=== PATIENT | male | born 1965 | race Caucasian/White ===

== ENCOUNTER 2023-03-02 15:32 | Inpatient (IN) | payer MEDICAID, OTHER ==
[~2023-03-02] VITALS: Ht 165.1 cm; Wt 65.8 kg
[2023-03-02 15:49] VITALS: O2SAT 99
[2023-03-02 16:26] LABS: BASOPHILS % 0.5 % (0.0-2.0); EOSINOPHILS % 3.5 % (0.0-5.0); HEMATOCRIT. 38.6 % (42.0-52.0); HEMOGLOBIN. 12.3 g/dL (14.0-18.0); LYMPHOCYTES % 8.9 % (20.0-50.0); MEAN CORPUSCULAR HEMOGLOBIN 18.3 pg (28.0-32.0); MEAN CORPUSCULAR VOLUME 57.2 fL (80.0-94.0); MONOCYTES % 7.1 % (2.0-8.0); PLATELET 341 x1000/uL (130-400); RED BLOOD CELL COUNT 6.75 mill/uL (4.7-6.1); RED CELL DISTRIBUTION WIDTH 16.2 % (11.6-14.6); WHITE BLOOD COUNT 15.6 x1000/uL (4.5-11.0)
[2023-03-02 16:28] LABS: ADD RBC MORPHOLOGY YES; DIFFERENTIAL COMMENT 1
[2023-03-02 16:34] LABS: INR 1.1; PROTHROMBIN TIME 11.4 sec (9.6-11.0)
[2023-03-02 16:49] LABS: CHLORIDE 106 mEq/L (98-107); INDEX HEMOLYSI 1 (1-3); INDEX ICTERIC 1 (1-4); INDEX LIPEMIC 1 (1-3); POTASSIUM 3.9 mEq/L (3.5-5.1); SODIUM 138 mEq/L (136-145)
[2023-03-02 17:05] LABS: ALANINE AMINOTRANSFERASE 23 IU/L (13-61); ALBUMIN 3.7 g/dL (3.4-5.0); ASPARTATE AMINOTRANSFERASE 13 IU/L (15-37); BILIRUBIN TOTAL 1.4 mg/dL (0.1-1.0); CALCIUM 8.9 mg/dL (8.5-10.1); CARBON DIOXIDE 26 mEq/L (21-32); GLUCOSE 96 mg/dL (70-105); PROTEIN TOTAL 7.9 g/dL (6.0-8.3); THYROID STIMULATING HORMONE 0.43 uIU/mL (0.36-3.74); UREA NITROGEN BLOOD 12 mg/dL (7-21)
[2023-03-02 17:29] LABS: ANISOCYTOSIS 1+; HYPOCHROMASIA 3+; MICROCYTOSIS 3+; PLATELET ESTIMATE NORMAL
[2023-03-02] MEDS ORDERED: CLONIDINE 0.1MG TABLET PO NR (22:45)
[2023-03-02] MEDS ORDERED: PIPERACILLIN/TAZOBACTAM 3.375GM/50ML PREMIX IV NR (23:00)
[2023-03-02 23:35] LABS: CLARITY URINE CLEAR (CLEAR); COLOR URINE YELLOW (YELLOW); GLUCOSE URINE NEGATIVE (NEGATIVE); KETONES URINE TRACE (NEGATIVE); LEUKOCYTE ESTERASE URINE NEGATIVE (NEGATIVE); NITRITE URINE NEGATIVE (NEGATIVE); OCCULT BLOOD URINE NEGATIVE (NEGATIVE); PROTEIN URINE NEGATIVE (NEGATIVE); SPECIFIC GRAVITY URINE 1.034 (1.005-1.030)
[2023-03-03] MEDS ORDERED: IOHEXOL-300 100 ML BOTTLE ONE (00:09)
[2023-03-03] MEDS ORDERED: KETOROLAC 15MG/ML VIAL IV PRN (01:15)
[2023-03-03] MEDS ORDERED: ONDANSETRON HCL 4MG/2ML INJ IV PRN (01:15)
[2023-03-03] MEDS ORDERED: CLONIDINE 0.1MG TABLET PO PRN (01:15)
[2023-03-03] MEDS ORDERED: DIPHENHYDRAMINE 50MG/ML VIAL IV PRN (01:15)
[2023-03-03] MEDS ORDERED: ACETAMINOPHEN 325MG TABLET PO PRN ×2 (01:15)
[2023-03-03] MEDS ORDERED: MAGNESIUM/ALUMINUM HYDROXIDE/SIMETHICONE 30ML UDC PO PRN (01:15)
[2023-03-03] MEDS ORDERED: ZOLPIDEM TARTRATE 5MG TABLET PO PRN (01:15)
[2023-03-03] MEDS ORDERED: DOCUSATE SODIUM 100MG CAPSULE PO PRN (01:15)
[2023-03-03 01:30] VITALS: BP 133/68; PULSE 102; RESP 16; TEMP 98.6
[2023-03-03 06:48] LABS: BASOPHILS % 0.4 % (0.0-2.0); EOSINOPHILS % 4.3 % (0.0-5.0); HEMATOCRIT. 36.3 % (42.0-52.0); HEMOGLOBIN. 11.6 g/dL (14.0-18.0); LYMPHOCYTES % 9.5 % (20.0-50.0); MEAN CORPUSCULAR HEMOGLOBIN 18.3 pg (28.0-32.0); MEAN CORPUSCULAR VOLUME 57.3 fL (80.0-94.0); MEAN PLATELET VOLUME 9.1 fl (7.4-10.4); MONOCYTES % 7.7 % (2.0-8.0); NEUTROPHILS % 78.1 % (40.0-76.0); PLATELET 328 x1000/uL (130-400); RED BLOOD CELL COUNT 6.33 mill/uL (4.7-6.1); RED CELL DISTRIBUTION WIDTH 16.2 % (11.6-14.6)
[2023-03-03 07:18] LABS: INDEX HEMOLYSI 2 (1-3); INDEX ICTERIC 1 (1-4); INDEX LIPEMIC 1 (1-3)
[2023-03-03 07:19] LABS: CHLORIDE 103 mEq/L (98-107); POTASSIUM 4.3 mEq/L (3.5-5.1); SODIUM 135 mEq/L (136-145)
[2023-03-03 07:31] LABS: DIFFERENTIAL COMMENT 1
[2023-03-03 07:32] LABS: ADD RBC MORPHOLOGY NO
[2023-03-03 07:34] LABS: CARBON DIOXIDE 26 mEq/L (21-32); CREATININE 0.9 mg/dL (0.6-1.3); IRON 37 ug/dL (50-175); PHOSPHORUS 2.6 mg/dL (2.5-4.9); TOTAL IRON BINDING CAPACITY 227 ug/dL (250-450); TROPONIN I HIGH SENSITIVITY 8 ng/L (<78); UREA NITROGEN BLOOD 13 mg/dL (7-21)
[2023-03-03] MEDS: PROPRANOLOL HCL 10MG TABLET PO SCH ×2 (07:40→09:00)
[2023-03-03 08:00] VITALS: BP 153/115; PULSE 91; RESP 20; TEMP 98.6
[2023-03-03] MEDS ORDERED: DEXTROSE 50% WATER 50ML SYRINGE IV PRN (08:15)
[2023-03-03] MEDS ORDERED: PIPERACILLIN/TAZOBACTAM 3.375 G in DEXTROSE 5% WATER 50 ML IV SCH ×2 (09:00→16:00)
[2023-03-03 09:18] LABS: GLUCOSE 103 mg/dL (70-105)
[2023-03-03 10:36] VITALS: BP 136/89; PULSE 86; TEMP 98.6
[2023-03-03 11:47] LABS: FOLIC ACID (FOLATE) SERUM 6.1 ng/mL (>5.38)
[2023-03-03] MEDS ORDERED: BLOOD SUGAR DIAGNOSTIC STRIP TEST SCH (11:50)
[2023-03-03] MEDS ORDERED: INSULIN LISPRO 100 UNITS/ML SUBCUT SCH (12:20)
[2023-03-04 15:03] LABS: HEPATITIS B SURFACE ANTIGEN NEGATIVE
[2023-03-04 15:31] LABS: HEPATITIS C VIR.AB 0.13 INDEXVAL (0.00-0.80)
== END 2023-03-03 15:24 | disposition home or self-care (01) | DRG 427 ==
LOC: ER 15:32 → EDBEDREQTM 23:09 → EDBEDREQ 23:09 → MICUSO 23:25 → 3WST 03-03 00:25
PROVIDERS: ADMIT Internal Medicine; ATTEND Internal Medicine
DX: C73 Malignant neoplasm of thyroid gland (principal); D50.9 Iron deficiency anemia, unspecified; E04.2 Nontoxic multinodular goiter; D72.829 Elevated white blood cell count, unspecified; F17.210 Nicotine dependence, cigarettes, uncomplicated; E06.1 Subacute thyroiditis; R22.1 Localized swelling, mass and lump, neck; I16.0 Hypertensive urgency; I25.2 Old myocardial infarction
CPT/HCPCS: 36415; 70491; 71046; 76536; 80048; 80053; 81003; 82607; 82728; 82746; 83036; 83520; 83540; 83550; 83605; 83735; 84100; 84145; 84439; 84443; 84480; 84484; 85025; 86376; 86803; 87340; 93005; 99291; J2543; J7060; Q9967